=== PATIENT | female | born 1995 | race American Indian/Alaskan Native ===

== ENCOUNTER 2021-11-04 15:31 | Emergency (ER) | payer BC ==
[2021-11-04 17:45] LABS: Basophils % (Auto) 0.3 % (0.0-1.8); Eosinophils # (Auto) 0.2 K/mm3 (0.0-0.4); Eosinophils % (Auto) 2.3 % (0.0-4.3); Hematocrit 35.2 % (30.3-42.9); Hemoglobin 12.1 gm/dl (10.1-14.3); Lymphocytes # (Auto) 1.7 K/mm3 (1.2-5.4); Lymphocytes % (Auto) 19.7 % (13.4-35.0); Mean Corpuscular HGB Conc 34 % (30-34); Mean Corpuscular Volume 96 fl (79-97); Monocytes # (Auto) 0.6 K/mm3 (0.0-0.8); Monocytes % (Auto) 7.1 % (0.0-7.3); Platelet Count 241 K/mm3 (140-440); Red Blood Count 3.67 M/mm3 (3.65-5.03); Red Cell Distribution Width 12.8 % (13.2-15.2)
[2021-11-04 21:22] LABS: Bacteria,Urine 1+ /HPF (Negative); Mucus,Urine 1+ /HPF
[2021-11-04 21:23] LABS: Bilirubin,Urine NEG (Negative); Blood,Urine MOD (Negative); Color,Urine Yellow (Yellow); Protein,Urine <15 mg/dL mg/dL (Negative); Urobilinogen,Urine < 2.0 mg/dL (<2.0)
[2021-11-04 22:42] LABS: Alanine Aminotransferase 19 units/L (7-56); Albumin 4.5 g/dL (3.9-5); Blood Urea Nitrogen 9 mg/dL (7-17); Calcium 9.8 mg/dL (8.4-10.2); Hemolysis Index 4
[2021-11-04 22:47] LABS: BUN/Creatinine Ratio 18
--- NOTE | 2021-11-04 23:36 | Ultrasound Report ---
ULTRASOUND OBSTETRIC INDICATION / CLINICAL INFORMATION: 14 weeks gestation, vaginal bleeding. Clinical Gestational Age (GA): 14 week 2 day TECHNIQUE: Transabdominal. COMPARISON: None available. FINDINGS: There is a single intrauterine . Biparietal Diameter = 2.7 cm = 14 weeks, 5 day(s). Head Circumference = 10.1 cm = 14 weeks, 5 day(s). Abdominal Circumference = 8.4 cm = 14 weeks, 5 day(s). Femur Length = 1.4 cm = 14 weeks, 0 day(s). Average Ultrasound Age (AUA) = 14 weeks, 4 day(s). Heart Rate: 156 beats per minute. Estimated Weight in grams (if calculated): Estimated Weight Growth Percentile (if calculated): Position: breech. Cervix: closed. Length in cm (if measured): 3.9 Placenta: posterior and free of the os. Amniotic Fluid Volume: normal Amniotic Fluid Index (MARY) in cm (if calculated): . Maternal Adnexa: No significant abnormality. IMPRESSION: 1. Single, living intrauterine with estimated sonographic age of 14 weeks, 4 day(s). 2. No significant sonographic abnormality. Signer Name: Geovani Peguero MD Signed: 11/04/2021 11:32 PM Workstation Name: [id number]
--- NOTE | 2021-11-05 00:15 | Emergency Department Report ---
ED Female HPI - General Chief complaint: Vaginal Bleeding Stated complaint: 14WEKS /HEAVY BLEEDING Source: patient Mode of arrival: Ambulatory Limitations: No Limitations - History of Present Illness Initial comments: Patient is a A0 26-year-old -[place] female who is approximately 14 weeks gestation presents to the ED with complaint of acute onset persistent vaginal bleeding for the last 1 week, worse in the last 2 days. Patient states that initially the bleeding started as spotting that subsequently became more consistent and bright red. Patient states that she contacted her MARKETING DEVELOPMENT MANAGER physician who advised to come to the ED for evaluation. Patient denies abdominal pain, fever, chills, dysuria, urinary frequency and urgency, fever, chills, nausea and vomiting or diarrhea, traumatic injury, heavy lifting, low back pain or vaginal discharge. MD Complaint: vaginal bleeding -: Sudden, week(s) (1) Location: other (vaginal) Radiation: non-radiating Severity: mild Severity scale (0 -10): 3 Quality: dull Consistency: intermittent Improves with: none Worsens with: none Are you Now?: Yes (14 weeks gestation) Associated Symptoms: denies other symptoms, vaginal bleeding. denies: abdominal pain, nausea/vomiting, fever/chills, loss of appetite, dysuria, hematuria, rash, seizure, shortness of breath, syncope, weakness, other - Related Data Sexually active: Yes : 1 Para: 0 A: 0 Allergies Allergy/AdvReac Type Severity Reaction Status Date / Time avocado Allergy Swelling Verified 11/04/21 16:31 ED Review of Systems ROS: Stated complaint: 14WEKS /HEAVY BLEEDING Other details as noted in HPI Constitutional: denies: chills, fever Eyes: denies: eye pain, eye discharge, vision change ENT: denies: ear pain, throat pain Respiratory: denies: cough, shortness of breath, wheezing Cardiovascular: denies: chest pain, palpitations Endocrine: no symptoms reported Gastrointestinal: denies: abdominal pain, nausea, diarrhea Genitourinary: abnormal menses (Vaginal bleeding). denies: urgency, dysuria, discharge Musculoskeletal: denies: back pain, joint swelling, arthralgia Skin: denies: rash, lesions Neurological: denies: headache, weakness, paresthesias Psychiatric: denies: anxiety, depression Hematological/Lymphatic: denies: easy bleeding, easy bruising ED Past Medical Hx - Past Medical History Previous Medical History?: No - Surgical History Past Surgical History?: No ED Physical Exam - General Limitations: No Limitations General appearance: alert, in no apparent distress - Head Head exam: Present: atraumatic, normocephalic, normal inspection - Eye Eye exam: Present: normal appearance, PERRL, EOMI Pupils: Present: normal accommodation - ENT ENT exam: Present: normal exam, normal orophraynx, mucous membranes moist, TM's normal bilaterally, normal external ear exam - Neck Neck exam: Present: normal inspection, full ROM. Absent: tenderness - Respiratory Respiratory exam: Present: normal lung sounds bilaterally. Absent: respiratory distress, wheezes, rales, rhonchi, chest wall tenderness, accessory muscle use, decreased breath sounds - Cardiovascular Cardiovascular Exam: Present: regular rate, normal rhythm, normal heart sounds. Absent: systolic murmur, diastolic murmur, rubs, gallop - GI/Abdominal GI/Abdominal exam: Present: soft, normal bowel sounds. Absent: tenderness, guarding, rebound, hyperactive bowel sounds, hypoactive bowel sounds, organomegaly - Bi-manual exam: Present: other (Pelvic exam deferred at this time) - Extremities Exam Extremities exam: Present: normal inspection, full ROM, normal capillary refill - Back Exam Back exam: Present: normal inspection, full ROM. Absent: tenderness, CVA tenderness (R), CVA tenderness (L), muscle spasm, paraspinal tenderness, vertebral tenderness - Neurological Exam Neurological exam: Present: alert, oriented X3, CN II-XII intact, normal gait, reflexes normal - Psychiatric Psychiatric exam: Present: normal affect, normal mood - Skin Skin exam: Present: warm, dry, intact, normal color. Absent: rash ED Course Vital Signs 11/05/21 01:06 Temperature 98.3 F Pulse Rate 82 Respiratory 18 Rate Blood Pressure 138/69 O2 Sat by Pulse 100 Oximetry ED Medical Decision Making - Lab Data Result diagrams: 11/04/21 17:11 11/04/21 17:11 - Radiology Data Radiology results: report reviewed, image reviewed [facility] [address] [place] [address] Ultrasound Report Signed Patient: NIRMAL PASCUAL MR#: [id number] 56 : 1995 Acct:[id number] Age/Sex: 26 / F ADM Date: 11/04/21 Loc: ED Attending Dr: Ordering Physician: MICHAEL BUCHANAN Date of Service: 11/04/21 Procedure(s): US OB >= 14 weeks Fetus Accession Number(s): [id number] cc: MICHAEL BUCHANAN ULTRASOUND OBSTETRIC INDICATION / CLINICAL INFORMATION: 14 weeks gestation, vaginal bleeding. Clinical Gestational Age (GA): 14 week 2 day TECHNIQUE: Transabdominal. COMPARISON: None available. FINDINGS: There is a single intrauterine . Biparietal Diameter = 2.7 cm = 14 weeks, 5 day(s). Head Circumference = 10.1 cm = 14 weeks, 5 day(s). Abdominal Circumference = 8.4 cm = 14 weeks, 5 day(s). Femur Length = 1.4 cm = 14 weeks, 0 day(s). Average Ultrasound Age (AUA) = 14 weeks, 4 day(s). Heart Rate: 156 beats per minute. Estimated Weight in grams (if calculated): Estimated Weight Growth Percentile (if calculated): Position: breech. Cervix: closed. Length in cm (if measured): 3.9 Placenta: posterior and free of the os. Amniotic Fluid Volume: normal Amniotic Fluid Index (MARY) in cm (if calculated): . Maternal Adnexa: No significant abnormality. IMPRESSION: 1. Single, living intrauterine with estimated sonographic age of 14 weeks, 4 day(s). 2. No significant sonographic abnormality. Signer Name: Geovani Peguero MD Signed: 11/04/2021 11:32 PM Workstation Name: [id number] Transcribed By: TL Dictated By: Geovani Peguero MD Electronically Authenticated By: Geovani Peguero MD Signed Date/Time: 11/04/212331 DD/ 29 TD/TT: - Medical Decision Making This is a A0 26-year-old -[place] female who is approximately 14 weeks gestation presents to the ED with complaint of acute onset persistent vaginal bleeding for the last 1 week, worse in the last 2 days. Patient states that initially the bleeding started as spotting that subsequently became more consistent and bright red. Patient states that she contacted her MARKETING DEVELOPMENT MANAGER physician who advised to come to the ED for evaluation. In the ED, patient is alert and oriented x3 and is not in any distress. Lab test results were reviewed and are all nonactionable. Transvaginal ultrasound showed a single live intrauterine of approximately 14 weeks and 4 days and with a heart rate of 156 bpm. Patient was discharged home and advised to maintain complete pelvic rest avoid heavy lifting, strenuous physical activity and to follow-up with the MARKETING DEVELOPMENT MANAGER physician in 3 to 5 days for reevaluation. Patient was advised to return to the ED immediately if symptoms get worse. - Differential Diagnosis Threatened miscarriage; UTI; subchorionic bleed; ovarian cyst; Critical care attestation.: If time is entered above; I have spent that time in minutes in the direct care of this critically ill patient, excluding procedure time. ED Disposition Clinical Impression: Vaginal bleeding in patient at less than 20 weeks gestation, Threatened miscarriage Disposition: HOME / SELF CARE / HOMELESS Is pt being admited?: No Does the pt Need Aspirin: No Condition: Stable Instructions: Threatened Miscarriage, [id number], Vaginal Bleeding During , Second Trimester, [id number] Additional Instructions: All lab test results were reviewed and are all nonactionable. Transvaginal ultrasound showed a single live intrauterine of approximately 14 weeks and 4 days with a heart rate of 156 bpm. Therefore maintain a complete pelvic rest devoid of any heavy lifting, strenuous physical or sexual activities and follow-up with your MARKETING DEVELOPMENT MANAGER physician in 3 to 5 days for reevaluation. Return to the ED immediately if symptoms get worse. Referrals: GUNNER HENRY MD [Primary Care Provider] - 3-5 Days Forms: Work/School Release Form(ED) Time of Disposition: 00:15 Print Language: UKRAINIAN
[2021-11-05 01:07] VITALS: BP 138/69
== END 2021-11-05 01:32 | disposition home or self-care (01) ==
LOC: ED 15:31
DX: O20.9 Hemorrhage in early pregnancy, unspecified (principal); O20.0 Threatened abortion; Z3A.14 14 weeks gestation of pregnancy; Z91.018 Allergy to other foods
CPT/HCPCS: 36415; 76805; 80053; 81001; 84702; 85025; 86900; 86901; 99284

== ENCOUNTER 2021-12-31 09:44 | Outpatient (CLI) | payer OTHER, MEDICAID, BC ==
[2021-12-31] MEDS ORDERED: LACTATED RINGERS 1,000 ML IV SCH (11:00)
[2021-12-31 13:39] LABS: Bacteria,Urine 3+ /HPF (Negative); Mucus,Urine 1+ /HPF
[2021-12-31 13:46] LABS: Color,Urine Straw (Yellow)
[2021-12-31 13:47] LABS: Bilirubin,Urine Negative (Negative)
[2021-12-31 13:48] LABS: Blood,Urine Negative (Negative); Urobilinogen,Urine < 2.0 mg/dL (<2.0)
--- NOTE | 2021-12-31 14:04 | Ultrasound Report ---
ULTRASOUND OBSTETRIC LIMITED INDICATION / CLINICAL INFORMATION: decreased movment. Clinical Gestational Age (GA) in weeks, days: 22 weeks 4 days TECHNIQUE: Transabdominal. COMPARISON: 11/04/2021 FINDINGS: Single live intrauterine in cephalic presentation with heart rate measuring 152 bpm. Posterior placenta is free of the os. No placental lifting or separation. No evidence of retroplacent al hematoma. IMPRESSION: Single live intrauterine . No significant abnormality. Signer Name: Carlos Leblanc MD Signed: 12/31/2021 2:00 PM Workstation Name: [id number]
[2021-12-31 16:18] VITALS: BP 110/67
== END 2021-12-31 14:35 | disposition home or self-care (01) ==
LOC: TRG 09:44 → APU 09:45 → TRG 14:35
PROVIDERS: ATTEND Obstetrics & Gynecology
DX: O36.8120 Decreased fetal movements, second trimester, not applicable or unspecified (principal); O26.892 Other specified pregnancy related conditions, second trimester; V89.2XXA Person injured in unspecified motor-vehicle accident, traffic, initial encounter; Z3A.22 22 weeks gestation of pregnancy; Y93.89 Activity, other specified; Y92.89 Other specified places as the place of occurrence of the external cause; Y99.8 Other external cause status
CPT/HCPCS: 59025; 76815; 81001; 85460; 96360; 96361; J7120